=== PATIENT | female | born 1995 | race Caucasian/White ===

== ENCOUNTER 2018-02-16 04:54 | Emergency (ER) | payer MEDICAID ==
[~2018-02-16] VITALS: Ht 160 cm; Wt 56.0 kg
[2018-02-16 05:02] VITALS: Ht 160 cm; Wt 56.0 kg
[2018-02-16 07:05] LABS: UA SPECIFIC GRAVITY >=1.030 (1.005-1.035); microscopic required? YES; urine erythrocyte 1+ (NEGATIVE)
[2018-02-16 07:44] VITALS: BP 128/68
== END 2018-02-16 07:44 | disposition home or self-care (01) ==
LOC: ED 04:54
PROVIDERS: Emergency Medicine
DX: N39.0 Urinary tract infection, site not specified (principal); J45.909 Unspecified asthma, uncomplicated; Z88.0 Allergy status to penicillin
CPT/HCPCS: 87491; 87591